=== PATIENT | male | born 1960 | race Caucasian/White ===

== ENCOUNTER 2016-06-14 17:29 | Inpatient (IN) | payer BC ==
--- NOTE | ~2016-06-14 | DS ---
Discharge Summary [place] [id number] [facility] [place]. [address] NAME: EJNNIFER PIERCE : 62 STATUS : DIS IN PAT#: [id number] AGE: 56 ADM/REG DATE : 06/15/16 MR#: [id number] REPORT SERV DATE: 06/23/16 DICTATED BY: DATE: REPORT STATUS : Draft TRANSCRIBED BY: MODL DATE: 06/22/16 ADMISSION DATE: 06/15/2016 DISCHARGE DATE: 06/22/2016 DISCHARGE DIAGNOSES: 1. Right lower extremity cellulitis. 2. Productive cough, acute. 3. Ubelv-ee-fgsuxld heart failure, systolic. 4. Type 2 diabetes, uncontrolled. 5. Acute renal failure on chronic kidney disease, stage III to IV. 6. Hematochezia. 7. History of third-degree AV block status post pacemaker. CONSULTATION: Wound nurse team. PERTINENT TESTS AND PROCEDURES: 1. Chest x-ray, 06/14/2016, impression: Heart is normal in size. No consolidation or effusion. Mild vascular prominence with no infiltrate. 2. Right lower extremity venous Doppler, 06/15/2016, impression: Negative right lower extremity deep venous Doppler. 3. Right foot x-ray, 06/17/2016, impression: Interval development of osteoarthritis and subluxation of the interphalangeal joint of the first right toe and interval worsening of osteoarthritis of the first metatarsophalangeal joint since prior exam two years earlier. Soft-tissue defect suspected superficial to medial surface of the right first toe without definitive osteo-erosion to suggest osteomyelitis. Diffuse soft tissue swelling of the foot, particularly the dorsum of the forefoot. 4. Renal ultrasound, 06/17/2016, impression: Kidney is non-obstructed. Evidence for stone on right-side nonobstructing. 5. Chest x-ray, 06/17/2016, impression: Continued cardiomegaly status post CABG and valvular heart repair with central venous congestion. Component of right infrahilar consolidation is not excluded. 6. Chest x-ray, PA and lateral, 06/22/2016, impression: Left basilar atelectasis and trace left pleural effusion. Improving aeration right base with mild right basilar atelectasis. CHIEF COMPLAINT UPON ADMISSION: Right lower extremity pain and swelling. HOSPITAL COURSE: Please refer to history and physical dated 06/15/2016, provided by Dr. Rush Batista for complete details pertaining to the patient's initial presentation upon admission and health history. Please also refer to interim discharge summary dated 06/21/2016, provided by Dr. Godwin Russell, covering date of service between 06/15/2016 and 06/21/2016. Briefly, the patient is a 56-year-old male with a past medical history to include type 2 diabetes, uncontrolled with chronic right lower extremity ulcer, chronic kidney disease Discharge Summary [address] [address] NAME: JENNIFER PIERCE : 62 STATUS : DIS IN PAT#: [id number] AGE: 56 ADM/REG DATE : 06/15/16 MR#: [id number] REPORT SERV DATE: 06/23/16 DICTATED BY: DATE: REPORT STATUS : Draft TRANSCRIBED BY: MODL DATE: 06/22/16 stage 3-4, coronary artery disease status post coronary artery bypass grafting, pacemaker placement, history of hepatitis, history of esophagitis. The patient presented to the emergency department on 06/14/2016 with complaints of increased right lower extremity pain and swelling in the setting of chronic right lower extremity ulcer and chronic pain. Prior to admission, the patient contacted his crematory attendant who removed his right lower extremity dressing to discover increased redness, swelling, and worsening of chronic foot ulcer. The patient was sent to emergency department for further evaluation and treatment. Initial emergency room evaluation included lab work, which reported a white blood cell count of 16,400 and 33% bandemia. Procalcitonin was also elevated and reported to be 1.17. The patient met criteria for sepsis and was admitted for further evaluation and treatment of right lower extremity cellulitis. 1. Right lower extremity cellulitis with history of chronic ulcers. The patient was initially treated with vancomycin and Zosyn and then, antibiotics were deescalated to Levaquin 750 mg p.o. every 48 hours on 06/18/2016. The patient has responded well to this treatment. White blood cell count is now 10,100. Procalcitonin has normalized and is reported to be 0.28. The patient will receive today's dose of Levaquin prior to discharge and then will take one more dose on 06/24/2016 to complete a 10-day therapy of antibiotics. 2. Sepsis, present upon admission, has since resolved. The patient will follow up with Podiatry weekly for continued wound management. Home health care wound management has also been initiated. 3. Acute congestive heart failure, systolic. The patient has an ejection fraction of 30%. This is most likely related to IV fluids. BNP was elevated initially and has trended down. Repeat chest x-ray today showed improvement. The patient will follow up with Dr. Roberts at [facility] as scheduled. 4. Type 2 diabetes, uncontrolled. The patient has history of peripheral vascular disease and retinopathy. A1c is reported to be 8.6. The patient was seeing Dr. Ladd, food safety scientist in the past, however, is no longer established with her office. New patient appointment is now pending with Dr. Crooks. Continue home medication regimen for now. To be managed by primary care physician, until patient sees Endocrinology. 5. Acute renal failure on chronic kidney disease, stage 3-4. This is likely cardiorenal. Creatinine still remains slightly elevated. Baseline appears to be between 1.6 and 1.8 in 2014. Creatinine is still elevated at 2.33 today. The patient will follow up with primary care for further evaluation. 6. Hematochezia. The patient is status post colonoscopy during this admission. Findings included internal hemorrhoids. Recommendation is Anusol suppositories twice daily x14 days. Hemoglobin and hematocrit have remained stable. 7. History of third-degree AV block. The patient is status post pacemaker in January 2013. The patient missed his outpatient appointment for pacer check due to this admission. New appointment was scheduled at for this week. DISCHARGE CONDITION: At the time of discharge, the patient is hemodynamically stable. DISCHARGE DIET: 2000-calorie ADA diet. Discharge Summary [address] [place]. [address] NAME: JENNIFER PIERCE : 62 STATUS : DIS IN PAT#: [id number] AGE: 56 ADM/REG DATE : 06/15/16 MR#: [id number] REPORT SERV DATE: 06/23/16 DICTATED BY: DATE: REPORT STATUS : Draft TRANSCRIBED BY: TEE DATE: 06/22/16 DISCHARGE MEDICATIONS: 1. Allopurinol 300 mg p.o. daily. 2. Aspirin 81 mg tablet p.o. daily. 3. Lipitor 40 mg tablet p.o. daily at bedtime. 4. Coreg 25 mg tablet p.o. twice daily. 5. Vitamin B12 100 mcg, take 500 mcg p.o. daily. 6. Ferrous sulfate 325 mg tablet p.o. three times daily. 7. Folic acid 1 mg p.o. daily. 8. Lasix 80 mg tablet p.o. daily. 9. Lasix 40 mg tablet p.o. every evening. 10.Anusol-HC suppository 25 mg one suppository per rectum twice daily through 07/04/2016. 11.NovoLog FlexPen per sliding scale. 12.Tresiba 54 units subcutaneously daily. 13.Levaquin 750 mg tablet p.o. every 48 hours. The patient will receive today's dose prior to discharge. Last dose will be 06/24/2016. 14.Mag-Ox 400 mg tablet p.o. twice daily. 15.Protonix 40 mg tablet p.o. daily. 16.Mucinex 600 mg ER tablet p.o. every 12 hours as needed. DISCHARGE INSTRUCTIONS: 1. Follow up with Dr. Santy Diaz, Podiatry, 06/29/2016 at 2:30 p.m. 2. Follow up with Dr. Mendez at for pacemaker check, 06/24/2016 at 11:15 a.m. 3. Follow up with new patient appointment, Dr. Crooks, Endocrinology. Documentation has been faxed. The patient will be contacted per their office for appointment time and date. 4. Follow up with Dr. Shirley, PCP, 07/05/2016 at 2 p.m. The patient was instructed to return to the emergency department for any acute onset of fever 100.4 degrees or higher lasting more than one hour, recurrence of acute onset of increased redness, swelling, pain to right lower extremity, or any other health concerns that are deviations from his baseline health status at the time of this discharge. IVAN/TEE DENA Turner / [id number] CC: Jennifer Moralez II, MD
--- NOTE | ~2016-06-14 | EGD ---
EGD REPORT [facility] [address] [place] [address] NAME: JENNIFER PIERCE : 62 STATUS : ADM IN PAT#: [id number] AGE: 56 ADM/REG DATE : 06/15/16 MR#: [id number] REPORT SERV DATE: 06/21/16 DICTATED BY: AKASH MELO DATE: 06/21/16 REPORT STATUS : Draft TRANSCRIBED BY: [facility] DATE: 06/21/16 Endoscopy Center Patient Name: Jennifer Pierce Date of : 1960 Attending MD: AKASH MELO MD Procedure Date No Time: 06/21/2016 Procedure: Colonoscopy Indications: Hematochezia Medicines: Propofol per Anesthesia Complications: No immediate complications. Estimated blood loss: None. Procedure: Pre-Anesthesia Assessment: - After reviewing the risks and benefits, the patient was deemed in satisfactory condition to undergo the procedure. - Prior to the procedure, a History and Physical was performed, and patient medications and allergies were reviewed. The patient's tolerance of previous anesthesia was also reviewed. The risks and benefits of the procedure and the sedation options and risks were discussed with the patient. All questions were answered, and informed consent was obtained. Prior Anticoagulants: The patient has taken no previous anticoagulant or antiplatelet agents. ASA Grade Assessment: IV - A patient with severe systemic disease that is a constant threat to life. After reviewing the risks and benefits, the patient was deemed in satisfactory condition to undergo the procedure. After I obtained informed consent, the scope was passed under direct vision. Throughout the procedure, the patient's blood pressure, pulse, and oxygen saturations were monitored continuously. The CF [id number] was introduced through the anus and advanced to the cecum, identified by appendiceal orifice and ileocecal valve. The colonoscopy was performed without difficulty. The ileocecal valve was photographed. The patient tolerated the procedure well. The quality of the bowel preparation was only fair with soft retained food debris throughout the colon. The bowel preparation used was polyethylene glycol (PEG) with a tap water enema this morning. Scope withdrawal time was greater 7 minutes. Findings: The perianal and digital rectal examinations were normal. Pertinent negatives include normal sphincter tone. Non-bleeding internal hemorrhoids were found during retroflexion and EGD REPORT [address] [address] NAME: JENNIFER PIERCE : 62 STATUS : ADM IN [facility]#: [id number] AGE: 56 ADM/REG DATE : 06/15/16 MR#: [id number] REPORT SERV DATE: 06/21/16 DICTATED BY: AKASH MELO DATE: 06/21/16 REPORT STATUS : Draft TRANSCRIBED BY: [employer] DATE: 06/21/16 were medium-sized and Grade I (internal hemorrhoids that do not prolapse). A few small-mouthed diverticula were found in the sigmoid colon. The exam was otherwise without abnormality. Impression: - Non-bleeding internal hemorrhoids. - Mild diverticulosis in the sigmoid colon. - The examination was otherwise normal. - No evidence of colonic bleeding. Recommendation: - Return patient to hospital [facility] for ongoing care. - Resume 2 gram sodium/2100 caloried ADA diet. - Give Anusol HC suppository 25 mg ME BID x 14 days. - Resume other medications. Procedure Code(s): --- Professional --- 04169, Colonoscopy, flexible, proximal to splenic flexure; diagnostic, with or without collection of specimen(s) by brushing or washing, with or without colon decompression (separate procedure) Diagnosis Code(s): --- Professional --- K64.0, First degree hemorrhoids K57.30, Diverticulosis of large intestine without perforation or abscess without bleeding K92.1, Melena CPT copyright 2013 [employer]. All rights reserved. The codes documented in this report are preliminary and upon colorer machine review may be revised to meet current compliance requirements. AKASH MELO MD 06/21/2016 3:24 PM This report has been signed electronically. Number of Addenda: 0 Note Initiated On: 06/21/2016 2:42 PM Scope Withdrawal Time 0 hours 7 minutes 2 seconds [id number] [id number]
--- NOTE | ~2016-06-14 | HP ---
History And Physical [place] [address] [facility] [place]. [address] NAME: JENNIFER PIERCE : 62 STATUS : ADM IN [facility]#: [id number] AGE: 56 ADM/REG DATE : 06/15/16 MR#: [id number] REPORT SERV DATE: 06/15/16 DICTATED BY: RUSH GRUBER DATE: 06/15/16 REPORT STATUS : Draft TRANSCRIBED BY: MODL DATE: 06/15/16 DATE OF ADMISSION: 06/15/2016 CHIEF COMPLAINT: Right lower extremity pain and swelling. HISTORY OF PRESENT ILLNESS: This is a 56-year-old male, who presents to the emergency room at [facility] with the above-mentioned complaint. History is obtained from the patient, his mother who is at bedside, and reviewing data available on the [employer] system. According to Mr. Pierce, who has had a right lower extremity ulcer and chronic pain, he was in his usual state of health until yesterday in the evening when he started experiencing severe pain in his right lower extremity. He called up his security solutions engineer, who opened his dressing in his lower extremity and there was redness, swelling, and the foot ulcer, which he had was also worse. He directly sent him to the emergency room to have this looked at. In the emergency room, he appeared to have right lower extremity cellulitis and Hospitalist Service is asked to admit him for further evaluation and treatment. He also met criteria for sepsis and had a procalcitonin of 1.17. At the time of my evaluation, he denied any chest pain, palpitations, or orthopnea. He had no cough, hemoptysis, night sweats, or weight loss. He has not had any recent falls or loss of consciousness. No history of recent fevers, chills, nausea, vomiting, or diarrhea. No history of hematemesis, hematochezia, or hematuria. No other history of recent travel or exposures other than those mentioned above. PAST MEDICAL HISTORY: Significant for his chronic kidney disease stage 4, nephrolithiasis, diabetes mellitus type 2, history of coronary artery disease with CABG and pacemaker placement, history of hepatitis, history of esophagitis. He has had cholecystectomy and liver biopsy as well. SOCIAL HISTORY: He does not smoke, drink, or use recreational drugs. He used to work in a factory. FAMILY HISTORY: Noncontributory. MEDICATIONS: His medications at home were reviewed by me in the chart today and reordered by me. REVIEW OF SYSTEMS: As in history of present illness. All other systems were reviewed in detail and are quite unremarkable. PHYSICAL EXAMINATION: GENERAL: This is a pleasant 56-year-old, not in any acute distress. History And Physical [address] [address] NAME: JENNIFER PIERCE : 62 STATUS : ADM IN PAT#: [id number] AGE: 56 ADM/REG DATE : 06/15/16 MR#: [id number] REPORT SERV DATE: 06/15/16 DICTATED BY: RUSH GRUBER DATE: 06/15/16 REPORT STATUS : Draft TRANSCRIBED BY: TEE DATE: 06/15/16 HEENT: His head is atraumatic, normocephalic. He is alert, awake, oriented to time, place, and person. Pupils are equal, reacting to light and accommodating. External ocular muscles are intact. Membranes are moist and pink. Sclerae are nonicteric. NECK: Supple with no jugular venous distention, lymphadenopathy, or thyromegaly. LUNGS: Clear to auscultation with no wheezes, rubs, or crackles. HEART: Heart sounds were regular with no murmurs, rubs, or gallops. ABDOMEN: Soft, nontender. Bowel sounds are present. EXTREMITIES: Showed no cyanosis, clubbing, or edema. The right lower extremity showed swelling and redness with increased warmth from his toes to all the way up just below his knees. There is also right foot ulcer on the plantar aspect at the ball of his feet on the first metatarsal. The ulcer is stage 3. NEURO: Grossly intact. No focal sensory or motor deficits. Higher functions appear intact. Gait was not examined at this time. VITAL SIGNS: His vital signs today showed a temperature of 99.6, pulse 95, respirations 16 a minute, blood pressure was 135/71, oxygen saturations were 96% breathing 2 L of oxygen via nasal cannula. LABORATORY DATA: Reviewed on the [employer] system showed a sodium of 136, potassium 4.1, chloride 102 and CO2 of 25. BUN was 44 with a creatinine of 2.18, which is slightly above his baseline. Blood glucose was 131. His alkaline phosphatase, ALT, and AST were within normal limits. Lactate was 2.0, procalcitonin was 1.17. [place] [address], hemoglobin was 11.9, hematocrit 36.2, and platelet count was 142. Differential showed 33 bands today. Urinalysis was not performed today. Films of the chest x-ray were reviewed by me on the PACS today and interpreted by me. Per my interpretation, there is no acute pulmonary process. The bony architecture was normal. There is a left- sided pacemaker. There were no lobar consolidations or pleural effusions seen. A 12-lead EKG done in the emergency room was reviewed and interpreted by me. There is paced rhythm at a rate of 104. IMPRESSION: 1. Right lower extremity pain. 2. Right lower extremity cellulitis. 3. Sepsis. 4. Chronic kidney disease stage 4. 5. Diabetes mellitus type 2. 6. Coronary artery disease with pacemaker, status post CABG. 7. History of hepatitis. PLAN: We will admit Mr. Pierce to the Hospitalist Service with defensive monitoring. After cultures are obtained, we will start him on empiric IV antibiotics. Start him on vancomycin and Zosyn intravenously. Follow Gram stain cultures and titrate accordingly. We will start him on IV fluids for aggressive volume resuscitation, check chemistry, electrolytes, and CBC in the morning. Replace electrolytes as needed. We will also control blood sugars with NovoLog given subcutaneously per sliding scale. Continue rest of his home medications. We will get Wound Care to see him in the morning as well. Also get a venous Doppler of his lower extremity to rule out DVT. I have discussed the above plans with the patient. His questions were answered and he and his mother are agreeable to the above History And Physical [address] [address] NAME: JENNIFER PIERCE : 62 STATUS : ADM IN [facility]#: [id number] AGE: 56 ADM/REG DATE : 06/15/16 MR#: [id number] REPORT SERV DATE: 06/15/16 DICTATED BY: RUSH GRUBER DATE: 06/15/16 REPORT STATUS : Draft TRANSCRIBED BY: TEE DATE: 06/15/16 recommendations. Hospitalist Service will be following him during his stay here. /TEE Rush Gruber M.D. / [id number] CC: Godwin Russell MD
--- NOTE | ~2016-06-14 | IDS ---
Interim Discharge Summary [facility] [address] [place]. [address] NAME: JENNIFER PIERCE : 62 STATUS : ADM IN [facility]#: [id number] AGE: 56 ADM/REG DATE : 06/15/16 MR#: [id number] REPORT SERV DATE: 06/21/16 DICTATED BY: CARRI RUSSELL DATE: 06/21/16 REPORT STATUS : Draft TRANSCRIBED BY: MODL DATE: 06/21/16 ADMISSION DATE: 06/15/2016 DISCHARGE DATE: Interim summary covers up to 06/21/2016. CHIEF COMPLAINT: Lower extremity pain and swelling. CURRENT HOSPITAL DIAGNOSES: 1. Right lower extremity cellulitis with chronic wounds. 2. Acute on chronic systolic heart failure with EF of 30%. 3. Uncontrolled diabetes. 4. Renal failure on CKD stage 3. 5. Hematochezia due to internal hemorrhoids. HISTORY OF PRESENT ILLNESS: Please see full H and P by Dr. Batista for details regarding initial presentation. HOSPITAL COURSE: 1. Right lower extremity cellulitis with chronic wounds. The patient was initially admitted and started on vancomycin and Zosyn. Vancomycin was discontinued after all cultures were negative. The patient has been continued on Levaquin given review of previous culture data. His legs dramatically improved when he elevates them in bed. They do immediately turn erythematous when he dangles them on the side of the bed. We have continued wound care. He is today day 7 of antibiotics. Would plan on discharging tomorrow with outpatient wound care. 2. Acute on chronic systolic heart failure. Ejection fraction if 30%. Continue IV diuresis. 3. Uncontrolled diabetes. Continue current medications. The patient has multiple complications including peripheral vascular disease, retinopathy, etc. 4. Acute renal failure on CKD. Suspect this is cardiorenal as his creatinine has improved, once we have been aggressively diuresing him. Repeat blood work in the morning. 5. Hematochezia. The patient had colonoscopy today with Dr. Morejon. He had internal hemorrhoids. Recommend Anusol for 14 days. See GI recommendations. DISPOSITION: Anticipate home, where he lives with his mother, tomorrow. ALYX/TEE Carri Russell MD / [id number] Interim Discharge Summary [address] [address] NAME: JENNIFER PIERCE : 62 STATUS : ADM IN PAT#: [id number] AGE: 56 ADM/REG DATE : 06/15/16 MR#: [id number] REPORT SERV DATE: 06/21/16 DICTATED BY: CARRI RUSSELL DATE: 06/21/16 REPORT STATUS : Draft TRANSCRIBED BY: MODL DATE: 06/21/16 CC: Carri Russell MD
--- NOTE | ~2016-06-14 | CN ---
Consultation Report [address] [place]. [address] NAME: JENNIFER PIERCE : 62 STATUS : DIS IN PAT#: [id number] AGE: 56 ADM/REG DATE : 06/15/16 MR#: [id number] REPORT SERV DATE: 07/08/16 DICTATED BY: FORTINO MOREJON DATE: 07/07/16 REPORT STATUS : Draft TRANSCRIBED BY: MODL DATE: 07/07/16 CONSULTATION DATE OF CONSULTATION: HISTORY OF PRESENT ILLNESS: This 56-year-old gentleman was admitted with right lower extremity cellulitis/pain and sepsis. Consultation is for hematochezia intermittently for the last 48 hours. He normally has a BM every other day but has noted increased loose stools couple of times daily on IV antibiotics since admission. He denies any abdominal pain or rectal pain. He reports bright red blood noted with wiping and in the water. Dr. Morejon had performed EGD on 02/18/2012 revealing severe esophagitis and distal half of the esophagus with ulceration, 4 cm hiatal hernia, erosive gastritis with copious bile reflux. He has not had prior colonoscopy. Attempted to schedule several times last of which was 12/2012 and patient refused. PAST MEDICAL HISTORY: 1. GERD. 2. CHF. 3. Coronary artery disease. 4. IN. 5. MR. 6. Type 2 diabetes mellitus. 7. Chronic kidney disease. 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 9. Hyperlipidemia. 10.Hypertension. 11.Childhood asthma. 12.Kidney stones. PAST SURGICAL HISTORY: CABG/MVR by Dr. Sutherland in 07/2010, cholecystectomy per Dr. Villarreal, amputation like left great toe, femoral angioplasty in 07/[address] Franco for peripheral vascular disease, and pacemaker insertion in 01/2013. ALLERGIES: CODEINE AND MILK. HOME MEDICATIONS: Include allopurinol, aspirin 81 mg daily, atorvastatin, carvedilol, vitamin B12 orally, ferrous sulfate 325 mg three times daily, folic acid daily, furosemide, NovoLog sliding scale, Tresiba, magnesium oxide, and pantoprazole 40 mg daily. SOCIAL HISTORY: The patient is single. He denies use of alcohol or tobacco. He is a computer education teacher. FAMILY HISTORY: No GI malignancies. Consultation Report [place] [id number] [facility] [place]. [address] NAME: JENNIFER PIERCE : 62 STATUS : DIS IN PAT#: [id number] AGE: 56 ADM/REG DATE : 06/15/16 MR#: [id number] REPORT SERV DATE: 07/08/16 DICTATED BY: FORTINO MOREJON DATE: 07/07/16 REPORT STATUS : Draft TRANSCRIBED BY: MODL DATE: 07/07/16 REVIEW OF SYSTEMS: All systems were reviewed and are negative with the exception of above noted. PHYSICAL EXAMINATION: VITAL SIGNS: Temp 98, pulse 71, respirations 25, BP 159/79, and O2 saturation 99% on 2 L per nasal cannula. GENERAL: Obese, alert and oriented x3. No acute distress. HEENT: Grossly within normal limits. LUNGS: Diffuse wheeze bilaterally. CARDIOVASCULAR: Regular rate and rhythm. ABDOMEN: Soft, nondistended, nontender. Active bowel sounds. EXTREMITIES: Without edema. LABORATORY DATA: WBC 8.5, normal. Hemoglobin 11.9, down to 9.5, low. His baseline is approximately 10. Platelets are low at 133,000. BUN elevated at 49. Creatinine elevated at 2.78. Calcium low at 8.1. BNP high at 896.8. IMPRESSION: 1. Hematochezia x48 hours intermittently. 2. Anemia with hemoglobin of 9.5. 3. Right lower extremity cellulitis. 4. Congestive heart failure, systolic. 5. Acute renal failure on chronic kidney disease. PLAN: I reviewed with Dr. Morejon. The patient is currently on a regular diet. Can prep over the weekend and plan for colonoscopy on 06/21/2016. I reviewed risks and benefits, and patient is willing to proceed. We will continue to monitor hematocrit and hemoglobin. DICTATED BY: Shannan Eugene NP KG/TEE Fortino Morejon M.D. / [id number] CC: Jennifer Moralez II, MD
[~2016-06-14 17:29] MED LIST: ACET500CAP PO; ACT300 PO; AK PENTOLATE OP; ASA5GR PO; ASAB PO; ASABAYER PO; BIST PO; COREG25 PO; COREG6 PO; CYANO1000T PO; DIABETA5 PO; DSS PO; FERROUS SULF325 M1 PO; FOLIC PO; IRON325 MG PO; KEFLEX750 MG; L40 PO; L80 PO; LANTUS SC; LEVEMFLXPN SC; LIPITOR40 PO; LOP25 PO; MAGOX4 PO; MONODOX100 MG PO; MULTIPLE VIT PO; NORV25 PO; NORV5 PO; NOVOLOG SC; NOVOPEN SC; PEP20 PO; PERCOCET1 TA2; PLAVIX PO; PRILO PO; PROTONIX PO; REG PO; REG5 PO; SENTAB PO; STERAPDS12; T PO; VICODINTAB PO; VITAMIN D1000 UNI1 PO; VITC500 PO; Z300 PO; ZOFRAN ODT4 MG PO
[2016-06-14] MEDS ORDERED: VITAMIN B-12 OTC PO (21:13)
[2016-06-14] MEDS ORDERED: ASAB PO (21:13)
[2016-06-14 21:24] LABS: HEMOGLOBIN 11.9 g/dL (13.6-17.8); MEAN CORPUS HGB CONC 32.9 g/dL (32.0-36.0); MEAN CORPUSCULAR VOLUME 91.2 fL (80-100); MEAN PLATELET VOLUME 10.4 fL (9.2-13.0); RED CELL COUNT 3.97 10/6/uL (4.7-6.1)
[2016-06-14 21:27] LABS: HEMATOCRIT 36.2 % (40.0-51.0); MANUAL DIFF YES %; PLATELET COUNT 142 10/3/uL (150-400); WHITE BLOOD CELLS 16.4 10/3/uL (4.5-10.5)
[2016-06-14] MEDS ORDERED: NOVOLOG FLEXPEN (21:31)
[2016-06-14] MEDS ORDERED: Z300 PO (21:31)
[2016-06-14] MEDS ORDERED: LIPITOR40 PO (21:31)
[2016-06-14] MEDS ORDERED: INSULIN DEGLUDEC (21:32)
[2016-06-14] MEDS ORDERED: PROTONIXIV PO (21:34)
[2016-06-14 21:35] LABS: INTERNATIONAL NORMAL RATI 1.2 UNITS (-); PARTIAL THROMBO TIME 30.9 SEC (22.5-37.2)
[2016-06-14] MEDS ORDERED: LASIX (21:35)
[2016-06-14] MEDS ORDERED: *UNABLE1 (21:36)
[2016-06-14 21:43] LABS: A/G RATIO 0.7 (0.7-1.9); ALBUMIN 3.2 G/DL (3.5-5.0); ALKALINE PHOSPHATASE 91 U/L (45-117); CALCIUM, SERUM 9.1 MG/DL (8.5-10.4); CHLORIDE, SERUM 102 MMOL/L (96-112); CREATININE 2.18 MG/DL (0.70-1.30); GFR AFRICAN AMERICAN 38 ML/MIN (>=60); GFR NON AFRICAN AMERICAN 33 ML/MIN (>=60); GLOBULIN 4.8 G/DL (2.5-4.1); POTASSIUM, SERUM 4.1 MMOL/L (3.5-5.3); SGOT(AST) 14 U/L (5-40); SGPT(ALT) 13 U/L (5-65); SODIUM, SERUM 136 MMOL/L (135-148); TOTAL BILIRUBIN 1.2 MG/DL (0-1.2)
[2016-06-14 21:44] LABS: BAND NEUTROPHILS 33 %; BUN (BLOOD UREA NITROGEN) 44 MG/DL (6-23); CO2 (CARBON DIOXIDE) 25 MMOL/L (24-34); ER DIFF TAT 0 Hrs 23 Mins; GLUCOSE, SERUM 131 MG/DL (60-99); LYMPHOCYTES 4 %; LYMPHOCYTES ABSOLUTE (CALC) 0.66 10/3/uL (0.67-4.30); MONOCYTES 2 %; MONOCYTES ABSOLUTE (CALC) 0.33 10/3/uL (0.21-1.20); NEUTROPHILS ABSOLUTE (CALC) 15.42 10/3/uL (2.02-8.40); SEGMENTED NEUTROPHIL (0) 61 %; TOTAL NUCLEATED CELLS 100
[2016-06-14 21:50] LABS: PLATELET ESTIMATE ADQ (ADEQUATE)
[2016-06-14 21:51] LABS: RBC MORPHOLOGY NORM (NORMAL)
[2016-06-14 22:13] LABS: PROCALCITONIN 1.17 ng/mL (<0.5)
[2016-06-15 05:18] LABS: HEMATOCRIT 35.2 % (40.0-51.0); HEMOGLOBIN 11.5 g/dL (13.6-17.8); MANUAL DIFF YES %; MEAN CORPUS HGB CONC 32.7 g/dL (32.0-36.0); MEAN CORPUSCULAR VOLUME 91.9 fL (80-100); MEAN PLATELET VOLUME 10.3 fL (9.2-13.0); PLATELET COUNT 117 10/3/uL (150-400); RBC DISTRIBUTION WIDTH 14.9 % (12.0-16.0); RED CELL COUNT 3.83 10/6/uL (4.7-6.1); WHITE BLOOD CELLS 17.9 10/3/uL (4.5-10.5)
[2016-06-15 05:30] LABS: BUN (BLOOD UREA NITROGEN) 45 MG/DL (6-23); CALCIUM, SERUM 8.9 MG/DL (8.5-10.4); CHLORIDE, SERUM 108 MMOL/L (96-112); CO2 (CARBON DIOXIDE) 21 MMOL/L (24-34); CREATININE 2.03 MG/DL (0.70-1.30); GFR AFRICAN AMERICAN 42 ML/MIN (>=60); GFR NON AFRICAN AMERICAN 36 ML/MIN (>=60); GLUCOSE, SERUM 145 MG/DL (60-99); PHOSPHORUS, SERUM 3.1 MG/DL (2.5-4.5); POTASSIUM, SERUM 4.3 MMOL/L (3.5-5.3); SODIUM, SERUM 141 MMOL/L (135-148)
[2016-06-15 06:10] LABS: BAND NEUTROPHILS 13 %; LYMPHOCYTES 5 %; MONOCYTES 7 %; MONOCYTES ABSOLUTE (CALC) 1.25 10/3/uL (0.21-1.20); NEUTROPHILS ABSOLUTE (CALC) 15.75 10/3/uL (2.02-8.40); PLATELET ESTIMATE SLT DEC (ADEQUATE); RBC MORPHOLOGY NORM (NORMAL); SEGMENTED NEUTROPHIL (0) 75 %; TOTAL NUCLEATED CELLS 100
[2016-06-15 06:13] LABS: PROCALCITONIN 2.76 ng/mL (<0.5)
[2016-06-15] MEDS ORDERED: L80 PO ×3 (10:48→13:07)
[2016-06-15] MEDS ORDERED: TRESIBA FL100 UNIT/1 SQ (10:49)
[2016-06-15] MEDS ORDERED: NOVOPEN SC ×2 (10:50→13:06)
[2016-06-15] MEDS ORDERED: ASAB PO (13:06)
[2016-06-15] MEDS ORDERED: B12100T PO (13:06)
[2016-06-15] MEDS ORDERED: TRESIBA FL200 UNIT/1 SC (13:06)
[2016-06-15] MEDS ORDERED: Z300 PO (13:07)
[2016-06-15] MEDS ORDERED: PROTONIX PO (13:07)
[2016-06-15] MEDS ORDERED: L40 PO (13:07)
[2016-06-15] MEDS ORDERED: FOLIC PO (13:07)
[2016-06-15] MEDS ORDERED: LIPITOR40 PO (13:07)
[2016-06-15] MEDS ORDERED: FERROUS SULF325 M1 PO (13:08)
[2016-06-15] MEDS ORDERED: MAGOX4 PO (13:08)
[2016-06-15] MEDS ORDERED: COREG25 PO (13:08)
[2016-06-16 05:05] LABS: BASOPHILS 0.1 %; BASOPHILS ABSOLUTE 0.01 10/3/uL (0.0-0.16); EOSINOPHILS 1.9 %; EOSINOPHILS ABSOLUTE 0.17 10/3/uL (0.0-0.53); HEMOGLOBIN 9.5 g/dL (13.6-17.8); IMMATURE GRANULOCYTES 0.2 %; IMMATURE GRANULOCYTES ABSOLUTE 0.02 10/3/uL (0.0-0.11); LYMPHOCYTES 6.4 %; LYMPHOCYTES ABSOLUTE 0.56 10/3/uL (0.67-4.30); MEAN CORPUS HGB CONC 32.4 g/dL (32.0-36.0); MEAN CORPUSCULAR HEMOGLOB 29.9 pg (26.0-34.0); MEAN CORPUSCULAR VOLUME 92.1 fL (80-100); MEAN PLATELET VOLUME 9.9 fL (9.2-13.0); MONOCYTES 7.3 %; MONOCYTES ABSOLUTE 0.64 10/3/uL (0.21-1.20); NEUTROPHILS 84.1 %; NEUTROPHILS ABSOLUTE 7.36 10/3/uL (2.02-8.40); PLATELET COUNT 92 10/3/uL (150-400); RBC DISTRIBUTION WIDTH 14.7 % (12.0-16.0); RED CELL COUNT 3.18 10/6/uL (4.7-6.1)
[2016-06-16 05:08] LABS: HEMATOCRIT 29.3 % (40.0-51.0); MANUAL DIFF NO %; WHITE BLOOD CELLS 8.8 10/3/uL (4.5-10.5)
[2016-06-16 05:20] LABS: BUN (BLOOD UREA NITROGEN) 47 MG/DL (6-23); CHLORIDE, SERUM 107 MMOL/L (96-112); CO2 (CARBON DIOXIDE) 20 MMOL/L (24-34); POTASSIUM, SERUM 4.2 MMOL/L (3.5-5.3); SODIUM, SERUM 138 MMOL/L (135-148)
[2016-06-16 05:25] LABS: CREATININE 2.59 MG/DL (0.70-1.30); GFR AFRICAN AMERICAN 31 ML/MIN (>=60); GFR NON AFRICAN AMERICAN 27 ML/MIN (>=60); GLUCOSE, SERUM 112 MG/DL (60-99)
[2016-06-16 17:46] LABS: SODIUM, URINE 16 MEQ/L; UREA NITROGEN (RANDOM UR) 606 MG/DL
[2016-06-17 05:40] LABS: BASOPHILS 0.1 %; BASOPHILS ABSOLUTE 0.01 10/3/uL (0.0-0.16); EOSINOPHILS 3.6 %; EOSINOPHILS ABSOLUTE 0.31 10/3/uL (0.0-0.53); HEMOGLOBIN 10.4 g/dL (13.6-17.8); IMMATURE GRANULOCYTES 0.1 %; IMMATURE GRANULOCYTES ABSOLUTE 0.01 10/3/uL (0.0-0.11); LYMPHOCYTES 7.2 %; LYMPHOCYTES ABSOLUTE 0.61 10/3/uL (0.67-4.30); MEAN CORPUS HGB CONC 32.2 g/dL (32.0-36.0); MEAN CORPUSCULAR VOLUME 93.1 fL (80-100); MEAN PLATELET VOLUME 11.4 fL (9.2-13.0); MONOCYTES 7.3 %; MONOCYTES ABSOLUTE 0.62 10/3/uL (0.21-1.20); NEUTROPHILS 81.7 %; NEUTROPHILS ABSOLUTE 6.97 10/3/uL (2.02-8.40); RBC DISTRIBUTION WIDTH 14.6 % (12.0-16.0); RED CELL COUNT 3.47 10/6/uL (4.7-6.1); WHITE BLOOD CELLS 8.5 10/3/uL (4.5-10.5)
[2016-06-17 05:44] LABS: HEMATOCRIT 32.3 % (40.0-51.0); MANUAL DIFF NO %; PLATELET COUNT 133 10/3/uL (150-400)
[2016-06-17 06:02] LABS: BUN (BLOOD UREA NITROGEN) 50 MG/DL (6-23); CALCIUM, SERUM 8.4 MG/DL (8.5-10.4); CHLORIDE, SERUM 105 MMOL/L (96-112); CO2 (CARBON DIOXIDE) 23 MMOL/L (24-34); CREATININE 2.86 MG/DL (0.70-1.30); GFR AFRICAN AMERICAN 27 ML/MIN (>=60); GFR NON AFRICAN AMERICAN 24 ML/MIN (>=60); PHOSPHORUS, SERUM 2.8 MG/DL (2.5-4.5); SODIUM, SERUM 138 MMOL/L (135-148)
[2016-06-17 06:10] LABS: ALBUMIN 2.3 G/DL (3.5-5.0); GLUCOSE, SERUM 69 MG/DL (60-99)
[2016-06-17 14:38] LABS: HEMOGLOBIN 9.7 g/dL (13.6-17.8)
[2016-06-18 02:14] LABS: BE (BASE EXCESS) -2.2 MEQ/L (0 +/- 2.5); CARBOXYHEMOGLOBIN 0.5 % (0-3); HCO3 (ACTUAL BICARBONATE) 22.7 MEQ/L (23-27); HEMOBLOGIN CONTENT 10.8 G/DL (14-18); INSTRUMENT SERIAL # 8083; METHEMOGLOBIN 0.1 % (0-3); MODE CMV; O2 CONTENT 14.6 VOL% (18-24); OPERATOR ID 23712; PCO2 (CO2 TENSION) 40 MMHG (35-45); PO2 (O2 TENSION) 83 MMHG (79-93); SAMPLE Arterial; pH 7.38 (7.37-7.43)
[2016-06-18 02:15] LABS: ALLENS TEST Pos; TIDAL VOLUME 500 ML
[2016-06-18 03:34] LABS: ALLENS TEST Pos; BE (BASE EXCESS) -2.2 MEQ/L (0 +/- 2.5); CARBOXYHEMOGLOBIN 0.5 % (0-3); DEVICE NC; HCO3 (ACTUAL BICARBONATE) 22.7 MEQ/L (23-27); HEMOBLOGIN CONTENT 10.8 G/DL (14-18); INSTRUMENT SERIAL # 8083; METHEMOGLOBIN 0.1 % (0-3); MODE CMV; O2 CONTENT 14.6 VOL% (18-24); OPERATOR ID 23712; PCO2 (CO2 TENSION) 40 MMHG (35-45); PO2 (O2 TENSION) 83 MMHG (79-93); SAMPLE Arterial; pH 7.38 (7.37-7.43)
[2016-06-18 06:55] LABS: BUN (BLOOD UREA NITROGEN) 49 MG/DL (6-23); CALCIUM, SERUM 8.1 MG/DL (8.5-10.4); CHLORIDE, SERUM 104 MMOL/L (96-112); CO2 (CARBON DIOXIDE) 24 MMOL/L (24-34); CREATININE 2.78 MG/DL (0.70-1.30); GFR AFRICAN AMERICAN 28 ML/MIN (>=60); GFR NON AFRICAN AMERICAN 25 ML/MIN (>=60); GLUCOSE, SERUM 70 MG/DL (60-99); SODIUM, SERUM 136 MMOL/L (135-148)
[2016-06-18 10:56] LABS: HEMATOCRIT 30.2 % (40.0-51.0); HEMOGLOBIN 9.5 g/dL (13.6-17.8)
[2016-06-18 17:39] LABS: HEMOGLOBIN 10.8 g/dL (13.6-17.8)
[2016-06-18 17:45] LABS: HEMATOCRIT 33.3 % (40.0-51.0)
[2016-06-19 04:46] LABS: BASOPHILS 0 %; EOSINOPHILS 0 %; HEMATOCRIT 32.5 % (40.0-51.0); HEMOGLOBIN 10.5 g/dL (13.6-17.8); IMMATURE GRANULOCYTES 0.8 %; IMMATURE GRANULOCYTES ABSOLUTE 0.04 10/3/uL (0.0-0.11); LYMPHOCYTES 4.9 %; LYMPHOCYTES ABSOLUTE 0.24 10/3/uL (0.67-4.30); MEAN CORPUS HGB CONC 32.3 g/dL (32.0-36.0); MEAN CORPUSCULAR HEMOGLOB 29.5 pg (26.0-34.0); MEAN CORPUSCULAR VOLUME 91.3 fL (80-100); MEAN PLATELET VOLUME 10.8 fL (9.2-13.0); MONOCYTES 5.2 %; MONOCYTES ABSOLUTE 0.25 10/3/uL (0.21-1.20); NEUTROPHILS 89.1 %; NEUTROPHILS ABSOLUTE 4.32 10/3/uL (2.02-8.40); PLATELET COUNT 137 10/3/uL (150-400); RBC DISTRIBUTION WIDTH 14.2 % (12.0-16.0); RED CELL COUNT 3.56 10/6/uL (4.7-6.1)
[2016-06-19 04:52] LABS: MANUAL DIFF NO %; WHITE BLOOD CELLS 4.9 10/3/uL (4.5-10.5)
[2016-06-19 04:57] LABS: ALBUMIN 2.2 G/DL (3.5-5.0); CALCIUM, SERUM 8.6 MG/DL (8.5-10.4); CHLORIDE, SERUM 104 MMOL/L (96-112); CO2 (CARBON DIOXIDE) 25 MMOL/L (24-34); CREATININE 2.64 MG/DL (0.70-1.30); GFR AFRICAN AMERICAN 30 ML/MIN (>=60); GFR NON AFRICAN AMERICAN 26 ML/MIN (>=60); PHOSPHORUS, SERUM 3.5 MG/DL (2.5-4.5); POTASSIUM, SERUM 4.6 MMOL/L (3.5-5.3); SODIUM, SERUM 138 MMOL/L (135-148)
[2016-06-19 04:58] LABS: BUN (BLOOD UREA NITROGEN) 53 MG/DL (6-23); GLUCOSE, SERUM 201 MG/DL (60-99)
[2016-06-19 05:52] LABS: PROCALCITONIN 1.16 ng/mL (<0.5)
[2016-06-19 10:44] LABS: HEMATOCRIT 33.9 % (40.0-51.0); HEMOGLOBIN 10.8 g/dL (13.6-17.8)
[2016-06-19 18:44] LABS: HEMATOCRIT 35.5 % (40.0-51.0); HEMOGLOBIN 11.5 g/dL (13.6-17.8)
[2016-06-20 06:19] LABS: HEMOGLOBIN 10.7 g/dL (13.6-17.8)
[2016-06-20 06:27] LABS: BUN (BLOOD UREA NITROGEN) 58 MG/DL (6-23); CALCIUM, SERUM 9.3 MG/DL (8.5-10.4); CHLORIDE, SERUM 102 MMOL/L (96-112); CO2 (CARBON DIOXIDE) 27 MMOL/L (24-34); GFR AFRICAN AMERICAN 32 ML/MIN (>=60); GFR NON AFRICAN AMERICAN 28 ML/MIN (>=60); GLUCOSE, SERUM 163 MG/DL (60-99); POTASSIUM, SERUM 5.1 MMOL/L (3.5-5.3); SODIUM, SERUM 137 MMOL/L (135-148)
[2016-06-20 11:12] LABS: HEMATOCRIT 35.2 % (40.0-51.0); HEMOGLOBIN 11.5 g/dL (13.6-17.8)
[2016-06-20 18:45] LABS: HEMATOCRIT 38.5 % (40.0-51.0); HEMOGLOBIN 12.4 g/dL (13.6-17.8)
[2016-06-21 01:48] LABS: BASOPHILS 0.1 %; BASOPHILS ABSOLUTE 0.01 10/3/uL (0.0-0.16); EOSINOPHILS 0 %; HEMATOCRIT 34.6 % (40.0-51.0); HEMOGLOBIN 11.5 g/dL (13.6-17.8); IMMATURE GRANULOCYTES 0.6 %; IMMATURE GRANULOCYTES ABSOLUTE 0.06 10/3/uL (0.0-0.11); LYMPHOCYTES ABSOLUTE 0.63 10/3/uL (0.67-4.30); MANUAL DIFF NO %; MEAN CORPUS HGB CONC 33.2 g/dL (32.0-36.0); MEAN CORPUSCULAR HEMOGLOB 29.6 pg (26.0-34.0); MEAN CORPUSCULAR VOLUME 88.9 fL (80-100); MEAN PLATELET VOLUME 10.1 fL (9.2-13.0); MONOCYTES 5.8 %; NEUTROPHILS 87.5 %; NEUTROPHILS ABSOLUTE 9.12 10/3/uL (2.02-8.40); PLATELET COUNT 194 10/3/uL (150-400); RBC DISTRIBUTION WIDTH 14.3 % (12.0-16.0); RED CELL COUNT 3.89 10/6/uL (4.7-6.1); WHITE BLOOD CELLS 10.4 10/3/uL (4.5-10.5)
[2016-06-21 01:59] LABS: BUN (BLOOD UREA NITROGEN) 57 MG/DL (6-23); CALCIUM, SERUM 9.6 MG/DL (8.5-10.4); CHLORIDE, SERUM 98 MMOL/L (96-112); CO2 (CARBON DIOXIDE) 29 MMOL/L (24-34); CREATININE 2.28 MG/DL (0.70-1.30); GFR AFRICAN AMERICAN 36 ML/MIN (>=60); GFR NON AFRICAN AMERICAN 31 ML/MIN (>=60); GLUCOSE, SERUM 185 MG/DL (60-99); POTASSIUM, SERUM 4.4 MMOL/L (3.5-5.3); SODIUM, SERUM 139 MMOL/L (135-148)
[2016-06-21 11:48] LABS: HEMATOCRIT 34.2 % (40.0-51.0); HEMOGLOBIN 11.4 g/dL (13.6-17.8)
[2016-06-22 04:10] LABS: BUN (BLOOD UREA NITROGEN) 59 MG/DL (6-23); CALCIUM, SERUM 9.6 MG/DL (8.5-10.4); CHLORIDE, SERUM 96 MMOL/L (96-112); CO2 (CARBON DIOXIDE) 35 MMOL/L (24-34); CREATININE 2.33 MG/DL (0.70-1.30); GFR AFRICAN AMERICAN 35 ML/MIN (>=60); GFR NON AFRICAN AMERICAN 30 ML/MIN (>=60); GLUCOSE, SERUM 164 MG/DL (60-99); POTASSIUM, SERUM 3.8 MMOL/L (3.5-5.3); SODIUM, SERUM 137 MMOL/L (135-148)
[2016-06-22 15:03] LABS: BASOPHILS 0.1 %; BASOPHILS ABSOLUTE 0.01 10/3/uL (0.0-0.16); EOSINOPHILS 4.1 %; EOSINOPHILS ABSOLUTE 0.41 10/3/uL (0.0-0.53); HEMATOCRIT 37.1 % (40.0-51.0); HEMOGLOBIN 12.1 g/dL (13.6-17.8); IMMATURE GRANULOCYTES 0.6 %; IMMATURE GRANULOCYTES ABSOLUTE 0.06 10/3/uL (0.0-0.11); LYMPHOCYTES 10.7 %; LYMPHOCYTES ABSOLUTE 1.08 10/3/uL (0.67-4.30); MEAN CORPUS HGB CONC 32.6 g/dL (32.0-36.0); MEAN CORPUSCULAR HEMOGLOB 29.9 pg (26.0-34.0); MEAN PLATELET VOLUME 10.3 fL (9.2-13.0); NEUTROPHILS 77.5 %; NEUTROPHILS ABSOLUTE 7.79 10/3/uL (2.02-8.40); PLATELET COUNT 187 10/3/uL (150-400); RBC DISTRIBUTION WIDTH 14.4 % (12.0-16.0); RED CELL COUNT 4.05 10/6/uL (4.7-6.1); WHITE BLOOD CELLS 10.1 10/3/uL (4.5-10.5)
[2016-06-22 15:18] LABS: MANUAL DIFF NO %; MEAN CORPUSCULAR VOLUME 91.6 fL (80-100)
[2016-06-22 15:46] LABS: PROCALCITONIN 0.28 ng/mL (<0.5)
[2016-06-22] MEDS ORDERED: ANUSOL-HC25 MG PR (17:51)
[2016-06-22] MEDS ORDERED: LEVAQUIN750 MG PO (17:51)
[2016-06-22] MEDS ORDERED: MUCINEX600 MG PO (17:52)
== END 2016-06-22 19:05 | disposition home health service (06) | DRG 871 ==
LOC: ER 17:29 → 4EA 06-15 00:49
PROVIDERS: Internal Medicine; Internal Medicine Gastroenterology; Nurse Practitioner Acute Care; Nurse Practitioner Family
PROC: 0DJD8ZZ Inspection of Lower Intestinal Tract, Via Natural or Artificial Opening Endoscopic (ICD-10-PCS; principal; 2016-06-21 15:06)
DX: A41.9 Sepsis, unspecified organism (principal); I50.23 Acute on chronic systolic (congestive) heart failure; N17.9 Acute kidney failure, unspecified; N18.4 Chronic kidney disease, stage 4 (severe); L03.115 Cellulitis of right lower limb; E11.65 Type 2 diabetes mellitus with hyperglycemia; I25.10 Atherosclerotic heart disease of native coronary artery without angina pectoris; Z95.1 Presence of aortocoronary bypass graft; K64.0 First degree hemorrhoids
CPT/HCPCS: 36600; 71010; 71020; 73630-RT; 76775; 80048; 80053; 80069; 80202; 81001; 82805; 82962; 83036; 83605; 83735; 83880; 84100; 84145; 84300; 84540; 85014; 85018; 85025; 85610; 85730; 87040; 93005; 93971; 94640; 96374; 99291; A9270-GY; J2405; J2543; J3370; J3475